=== PATIENT | male | born 1950 | race Caucasian/White ===

== ENCOUNTER 2018-09-17 09:50 | Outpatient (CLI) | payer MEDICARE ==
--- NOTE | 2018-09-17 16:41 | NM ---
THREE PHASE BONE SCAN OF THE KNEES WHOLE BODY BONE SCAN: Date: 09/17/18 HISTORY: Abnormal sensation in the right knee. Swelling. Pain. Feeling of tightness. COMPARISON: None. TECHNIQUE: Patient administered 31.4 mCi technetium-99m MDP intravenously. Three phase imaging of the knees perf ormed. Delayed whole body imaging was also performed. FINDINGS: There is no abnormal uptake of the radiotracer on the flow and blood pool images. On the delayed imag es, there is a small focus of uptake along the lateral margin of the right tibial plateau, adjacent t o the prosthetic component. Small component of loosening cannot be excluded. There is physiologic uptake of radiotracer on the delayed images. There are degenerative changes in b oth shoulders and the left knee. IMPRESSION: Possible loosening adjacent to the lateral tibial component of the right knee prosthesis. Dedicated r ight knee radiograph series is recommended. POS: [facility]
== END 2018-09-17 09:51 | disposition home or self-care (01) ==
LOC: NM 09:50
PROVIDERS: ATTEND Family Medicine
DX: T84.84XA Pain due to internal orthopedic prosthetic devices, implants and grafts, initial encounter (principal); Z96.651 Presence of right artificial knee joint
CPT/HCPCS: 78315; A9503

== ENCOUNTER 2019-03-01 10:29 | Outpatient (CLI) | payer MEDICARE, OTHER | END 2019-03-01 10:30 | disposition home or self-care (01) | PROVIDERS: ATTEND Otolaryngology Otolaryngic Allergy | DX: R13.12 Dysphagia, oropharyngeal phase (principal); J38.01 Paralysis of vocal cords and larynx, unilateral | CPT/HCPCS: 74230 ==

== ENCOUNTER 2019-03-25 13:44 | Outpatient (CLI) | payer MEDICARE, OTHER ==
[~2019-03-25 13:44] MED LIST: Iopamidol 370 76% 100 ML VIAL ONE
--- NOTE | 2019-03-25 15:44 | CT ---
Contrast-enhanced CT images soft tissue neck. 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 FINDINGS: Contrast-enhanced CT images soft tissue neck demonstrates a heterogeneously enhancing calcified mass measuring 3.1 x 3.2 cm in the inferior aspect of the right thyroid lobe. I cannot exclude the possibility of right thyroid neoplasm. Correlate with sonography and fine-needle aspiration. The left thyroid lobe is unremarkable. The right thyroid lesion appears to compress the right anterior trachea at the level of T3 vertebral level. The inferior extent of the right thyroid lesion extends into the superior mediastinum passing from the right midline toward the left anterior to the right brachiocephalic artery and cross ing the midline anterior medial to the left common carotid artery. If there is malignancy in this area it is possible that it may involve the left recurrent laryngeal nerve. No significant evidence of lymphadenopathy seen. CT images do confirm medial displacement of the left vocal cord. Some areas of atherosclerotic calcification seen in the right and left carotid bulbs. No evidence of high-grade stenosis seen. Normal flow seen in both internal carotid arteries. No evidence of parotid pathology seen. No definite evidence of lymphadenopathy seen. IMPRESSION: 1.: Heterogeneously enhancing and calcified inferior aspect right thyroid mass. Malignancy cannot be excluded. The lesion appears to extend inferiorly into the superior mediastinum. 2: Medially displaced left vocal cord. Transcribed Date/Time: 03/25/2019 5:32 PM
== END 2019-03-25 13:45 | disposition home or self-care (01) ==
LOC: BICCT 13:44
PROVIDERS: ATTEND Otolaryngology Otolaryngic Allergy
DX: J38.01 Paralysis of vocal cords and larynx, unilateral (principal); R13.11 Dysphagia, oral phase; R13.12 Dysphagia, oropharyngeal phase; E07.9 Disorder of thyroid, unspecified
CPT/HCPCS: 70491; 82565; Q9967

== ENCOUNTER 2019-08-07 10:49 | Emergency (ER) | payer MEDICARE, OTHER ==
[2019-08-07 12:32] LABS: #Basophils 0.1 thou/uL (0.0-0.2); #Eosinphils 0.1 thou/uL (0.0-0.7); #Monocytes 0.9 thou/uL (0.11-0.59); %Basophils 0.9 % (0.0-1.0); %Eosinophils 1.8 % (0.0-10.0); %Lymphocytes 27.8 % (21.0-51.0); %Monocytes 12.1 % (0.0-10.0); %Neutrophils 57.4 % (42.0-75.0); Hemoglobin 13.3 g/dL (14.0-18.0); Mean Corpuscular HGB CONC 33.4 g/dL (32.0-36.0); Mean Corpuscular Volume 89.9 fL (78.0-98.0); Mean Platelet Volume 7.9 fL (7.4-10.4); Platelet Count 277 thou/uL (130-400); RBC Distribution Width 11.8 % (11.5-14.5); Red Blood Cell (RBC) Count 4.44 mill/uL (4.70-6.10)
[2019-08-07 12:52] LABS: ALT (SGPT) 18 U/L (8-55); AST (SGOT) 18 U/L (5-34); Albumin 4.2 g/dL (3.4-4.8); Alkaline Phosphatase 89 U/L (40-150); Anion Gap 11 mmol/L (10-20); BUN (Urea Nitrogen) 13 mg/dL (8.4-25.7); Bilirubin, Total 0.7 mg/dL (0.2-1.2); Calc. Creatinine Clearance 0 mL/min (70-130); Calcium 9.6 mg/dL (7.8-10.44); Carbon Dioxide 29 mmol/L (23-31); Chloride 99 mmol/L (98-107); Estimated GFR-MDRD Greater than 90; Globulin 2.9 g/dL (2.4-3.5); Glucose 88 mg/dL (80-115); Potassium 3.9 mmol/L (3.5-5.1); Protein, Total 7.1 g/dL (5.8-8.1); Sodium 135 mmol/L (136-145)
== END 2019-08-07 15:00 | disposition home or self-care (01) ==
LOC: ERS 10:49
DX: I95.1 Orthostatic hypotension (principal); E78.5 Hyperlipidemia, unspecified; I10 Essential (primary) hypertension; Z87.891 Personal history of nicotine dependence; Z79.899 Other long term (current) drug therapy; Z85.21 Personal history of malignant neoplasm of larynx; Z79.82 Long term (current) use of aspirin
CPT/HCPCS: 36415; 80053; 85025; 96360; 96361

== ENCOUNTER 2019-12-05 12:22 | Emergency (ER) | payer MEDICARE, OTHER ==
[2019-12-05 13:13] LABS: Hemoglobin 14.5 g/dL (14.0-18.0); Mean Corpuscular Hemoglobin 27.8 pg (27.0-31.0); Mean Platelet Volume 8.1 fL (7.4-10.4); Platelet Count 256 thou/uL (130-400); RBC Distribution Width 12.9 % (11.5-14.5); Red Blood Cell (RBC) Count 5.21 mill/uL (4.70-6.10); White Blood Cell (WBC) Count 4.7 thou/uL (4.8-10.8)
[2019-12-05] MEDS ORDERED: Lorazepam 1 MG TAB ONE (13:20)
[2019-12-05 13:27] LABS: Lymphocytes 53 % (21-51); MDiff Complete? YES; Monocytes 2 % (0-10); Neutrophil 32 % (42-75); Platelet Morphology Comment Appears Adequate; RBC Morphology Normal; Reactive Lymphocytes 13 % (0-10)
[2019-12-05 13:42] LABS: ALT (SGPT) 70 U/L (8-55); AST (SGOT) 46 U/L (5-34); Albumin 3.8 g/dL (3.4-4.8); Alkaline Phosphatase 68 U/L (40-110); Anion Gap 9 mmol/L (10-20); BUN (Urea Nitrogen) 14 mg/dL (8.4-25.7); Bilirubin, Total 0.5 mg/dL (0.2-1.2); CK (CPK) 313 U/L (30-200); Calc. Creatinine Clearance 0 mL/min (70-130); Carbon Dioxide 32 mmol/L (23-31); Chloride 106 mmol/L (98-107); Estimated GFR-MDRD 84; Globulin 2.4 g/dL (2.4-3.5); Glucose 85 mg/dL (80-115); Potassium 4.7 mmol/L (3.5-5.1); Protein, Total 6.2 g/dL (5.8-8.1); Sodium 142 mmol/L (136-145)
[2019-12-05] MEDS ORDERED: Losartan/Hydrochlorothiazide 100 mg/25 mg Tablet PO SCH (14:15)
== END 2019-12-05 14:00 | disposition home or self-care (01) ==
LOC: ERS 12:22
DX: I10 Essential (primary) hypertension (principal); E78.5 Hyperlipidemia, unspecified; Z87.891 Personal history of nicotine dependence
CPT/HCPCS: 36415; 80053; 82550; 84484; 85025; 93005

== ENCOUNTER 2020-01-31 04:54 | Emergency (ER) | payer MEDICARE, OTHER ==
[2020-01-31] MEDS ORDERED: Ondansetron PF 4 MG/2 ML Vial ONE (05:20)
[2020-01-31] MEDS ORDERED: Morphine 4 MG/ML VIAL ONE (05:20)
[2020-01-31 05:25] LABS: #Lymphocytes 1.1 thou/uL (1.20-3.40); #Monocytes 0.3 thou/uL (0.11-0.59); #Neutrophils 4.5 thou/uL (1.40-6.50); %Basophils 0.7 % (0.0-1.0); %Eosinophils 0.3 % (0.0-10.0); %Lymphocytes 18.4 % (21.0-51.0); %Monocytes 5.4 % (0.0-10.0); %Neutrophils 75.2 % (42.0-75.0); Hemoglobin 11.6 g/dL (14.0-18.0); Mean Corpuscular HGB CONC 32.1 g/dL (32.0-36.0); Mean Corpuscular Hemoglobin 28.6 pg (27.0-31.0); Mean Corpuscular Volume 88.9 fL (78.0-98.0); Mean Platelet Volume 7.7 fL (7.4-10.4); Platelet Count 230 thou/uL (130-400); RBC Distribution Width 15.3 % (11.5-14.5); Red Blood Cell (RBC) Count 4.07 mill/uL (4.70-6.10)
[2020-01-31 05:33] LABS: INR-International Normal Ratio 0.9; PTT 40.2 SEC (22.9-36.1); Prothrombin Time 12.6 SEC (12.0-14.7)
[2020-01-31 05:48] LABS: ALT (SGPT) 35 U/L (8-55); AST (SGOT) 30 U/L (5-34); Albumin 3.7 g/dL (3.4-4.8); Alkaline Phosphatase 47 U/L (40-110); Anion Gap 10 mmol/L (10-20); BUN (Urea Nitrogen) 16 mg/dL (8.4-25.7); Bilirubin, Total 0.5 mg/dL (0.2-1.2); Calc. Creatinine Clearance 0 mL/min (70-130); Calcium 8.7 mg/dL (7.8-10.44); Carbon Dioxide 30 mmol/L (23-31); Chloride 104 mmol/L (98-107); Estimated GFR-MDRD Greater than 90; Globulin 2.4 g/dL (2.4-3.5); Glucose 102 mg/dL (80-115); Lipase 47 U/L (8-78); Potassium 4.7 mmol/L (3.5-5.1); Protein, Total 6.1 g/dL (5.8-8.1); Sodium 139 mmol/L (136-145)
--- NOTE | 2020-01-31 06:52 | CT ---
CT ABDOMEN AND PELVIS WITH CONTRAST: Date: 01/31/2020 COMPARISON: None. HISTORY: Left flank pain that radiates to the front. Patient's also reports that the patient has Factor V Leiden deficiency and is on blood thinners. TECHNIQUE: Multiple contiguous axial images were obtained in a CT of the abdomen and pelvis with contrast. Sagit katya and coronal reformats were performed. FINDINGS: There is enlargement of the inferior aspect of the left rectus abdominus muscle with surrounding stra nding changes and high density fluid. There is a low density portion within the rectus abdominus musc le that measures 4.4 cm in width. This likely represents an acute on chronic rectus sheath hematoma. The deep inferior epigastric artery is seen within the rectus abdominus muscle. There is also a small amount of hyperdensity in the more superior aspect of the muscle which could represent a small amoun t of active bleeding within the rectus sheath hematoma. No free air or free fluid is seen within the peritoneal cavity. The liver, gallbladder, kidneys, adrenal glands, spleen, and pancreas are unremarkable. The large and small bowel are unremarkable. The appendix is not definitely seen and may have been rem rafaela. No abdominal or pelvic lymphadenopathy seen. Atherosclerotic calcifications are seen in the aor ta. Degenerative changes are seen in the spine. The visualized inferior thorax is unremarkable. IMPRESSION: Left rectus sheath hematoma. This is likely an acute on chronic rectus sheath hematoma. There may be a small amount of active bleeding within the hematoma. POS: [facility]
[2020-01-31] MEDS ORDERED: Iopamidol-370 76% 500 ML 1 ML ONE (13:41)
--- NOTE | 2020-02-01 12:24 | EKG ---
Test Reason : Blood Pressure : / mmHG Vent. Rate : 071 BPM Atrial Rate : 071 BPM P-R Int : 154 ms QRS Dur : 096 ms QT Int : 396 ms P-R-T Axes : 029 003 051 degrees QTc Int : 430 ms Normal sinus rhythm Normal ECG Confirmed by ETELVINA FARRAR ([id number]), story editor JOSÉ BOWMAN ([id number]) on 02/01/2020 12:24:11 PM Referred By: Confirmed By:ETELVINA FARRAR
== END 2020-01-31 08:46 | disposition short-term general hospital (02) ==
LOC: ERS 04:54
DX: M79.81 Nontraumatic hematoma of soft tissue (principal); D68.2 Hereditary deficiency of other clotting factors; E78.5 Hyperlipidemia, unspecified; I10 Essential (primary) hypertension; Z87.891 Personal history of nicotine dependence; Z79.899 Other long term (current) drug therapy; Z79.1 Long term (current) use of non-steroidal anti-inflammatories (NSAID)
CPT/HCPCS: 74177; 80053; 83690; 85025; 85610; 85730; 93005; 96361; 96374; 96375; J2270; J2405; Q9967